=== PATIENT | female | born 1985 | race African-American/Black ===

== ENCOUNTER 2016-09-06 14:09 | Emergency (ER) | payer MEDICAID ==
[~2016-09-06] VITALS: Ht 165.1 cm; Wt 59.0 kg
[2016-09-06] MEDS ORDERED: SODIUM CHLORIDE 0.9% 1,000 ML IV ONE (14:52)
[2016-09-06 15:42] LABS: BASOPHILS % 0.4 % (0.0-2.0); HEMATOCRIT. 31.1 % (36.0-48.0); HEMOGLOBIN. 10.5 g/dL (12.0-16.0); LYMPHOCYTES % 18.6 % (20.0-50.0); MEAN CORPUSCULAR HEMOGLOBIN 29.7 pg (28.0-32.0); MONOCYTES % 4.6 % (2.0-8.0); NEUTROPHILS % 76.4 % (40.0-76.0); PLATELET 237 x1000/uL (130-400); RED BLOOD CELL COUNT 3.54 mill/uL (4.2-5.4); RED CELL DISTRIBUTION WIDTH 12.6 % (11.6-14.6)
[2016-09-06 15:45] LABS: CHLORIDE 103 mEq/L (98-107)
[2016-09-06 15:48] LABS: INR 1.1; PROTHROMBIN TIME 11.1 sec
[2016-09-06 15:53] LABS: CARBON DIOXIDE 24 mEq/L (21-32); CLARITY URINE CLEAR (CLEAR); COLOR URINE YELLOW (YELLOW); GLUCOSE URINE NEGATIVE (NEGATIVE); KETONES URINE NEGATIVE (NEGATIVE); LEUKOCYTE ESTERASE URINE NEGATIVE (NEGATIVE); NITRITE URINE NEGATIVE (NEGATIVE); OCCULT BLOOD URINE 2+ (NEGATIVE); PHOSPHORUS 2.7 mg/dL (2.5-4.9); PROTEIN URINE NEGATIVE (NEGATIVE); SPECIFIC GRAVITY URINE 1.003 (1.005-1.030); UROBILINOGEN URINE 0.2 E.U./dL (0.2-1.0)
[2016-09-06 17:09] VITALS: BP 114/87
== END 2016-09-06 18:43 | disposition home or self-care (01) ==
LOC: ER 15:37
DX: N93.9 Abnormal uterine and vaginal bleeding, unspecified (principal); F14.10 Cocaine abuse, uncomplicated; Z90.49 Acquired absence of other specified parts of digestive tract
CPT/HCPCS: 36415; 76830; 76856; 80053; 81001; 81025; 83605; 83690; 83735; 84100; 85025; 85610; 86850; 86900; 86901; 96360; 96361; 99285; J7030; Z7610